=== PATIENT | female | born 1960 | race Caucasian/White ===

== ENCOUNTER 2018-02-13 15:07 | Emergency (ER) | payer MEDICARE ==
[~2018-02-13] VITALS: Ht 162.6 cm; Wt 97.0 kg
[2018-02-13 15:18] VITALS: BP 207/91; PULSE 67; RESP 16; TEMP 97.1; O2SAT 65; O2SAT 97
--- NOTE | 2018-02-13 16:12 | PD ---
HPI Chief Complaint: Skin Problem Time Seen by Provider: 15:58 Travel History International Travel<30 days: No Contact w/Intl Traveler<30days: No Traveled to known affect area: No History of Present Illness HPI This is a 57-year-old female here with multiple insect bites to her upper and lower extremities 3 days. She reports she believes these are caused by bedbugs. She is visiting from [place] and noticed small insects on her bed in her room where she is staying that appear to be bedbugs. She denies fever chills. The lesions are pruritic. No oral airway swelling. No wheezing. Symptom severity is moderate. Slightly improved with OTC Benadryl. PFSH Past Medical History Medical History: Denies Significant Hx Diminished Hearing: No Immunizations Current: Yes Tetanus Vaccination: Unknown Influenza Vaccination: No ?: Not Menopausal: Yes Past Surgical History Surgical History: No Previous Surgery Social History Alcohol Use: No Tobacco Use: No Substance Use: No Allergies-Medications (Allergen,Severity, Reaction): Coded Allergies: No Known Allergies (Unverified , 02/13/18) Reported Meds & Prescriptions Reported Meds & Active Scripts Active No Active Prescriptions or Reported Medications Review of Systems Except as stated in HPI: all other systems reviewed are Neg General / Constitutional: No: Fever Eyes: No: Visual changes HENT: No: Headaches Cardiovascular: No: Chest Pain or Discomfort Respiratory: No: Shortness of Breath Gastrointestinal: No: Abdominal Pain Genitourinary: No: Dysuria Skin: Positive Rash, Positive Itching Neurologic: No: Weakness Physical Exam Narrative GENERAL: Alert and well-appearing 49-year-old female SKIN: Warm and dry. Circular well demarcated erythematous lesions consistent with insect bites to exposed skin areas of the upper extremities and lower extremities. The areas do not appear to be infected. No fluctuance or induration. HEAD: Normocephalic. EYES: No injection or drainage. NECK: Supple. No meningismus CARDIOVASCULAR: Regular rate and rhythm RESPIRATORY: Breath sounds equal bilaterally. No accessory muscle use. GASTROINTESTINAL: Abdomen soft, non-tender, nondistended. MUSCULOSKELETAL: No cyanosis, or edema. BACK: Nontender without obvious deformity. No CVA tenderness. Data Data Last Documented VS Vital Signs Date Time Temp Pulse Resp B/P (MAP) Pulse Ox O2 Delivery O2 Flow Rate FiO2 02/13/18 15:18 97.1 67 16 207/91 (129) 97 Orders Orders Dexamethasone Inj (Decadron Inj) (02/13/18 16:15) Diphenhydramine Inj (Benadryl Inj) (02/13/18 16:15) Ed Discharge Order (02/13/18 16:12) MDM Medical Decision Making Medical Screen Exam Complete: Yes Emergency Medical Condition: Yes Differential Diagnosis Inflamed insect bites, contact dermatitis, allergic reaction Narrative Course 57-year-old female here with multiple inflamed insect bites presumed to be caused by bedbugs. She is well-appearing. She was given a shot of Decadron and Benadryl. She will be discharged home with prednisone and Benadryl. Bedbug remediation discussed Diagnosis Primary Impression: Insect bites Qualified Codes: W57.XXXA - Bitten or stung by nonvenomous insect and other nonvenomous arthropods, initial encounter Referrals: Primary Care Physician Additional Instructions: Medication as directed. Bedbug extermination as discussed Scripts Prednisone (Prednisone) 20 Mg Tab 40 MG PO DAILY, #10 TAB 0 Refills Take 40 mg (2 tablets) daily for 5 days Prov: Radha Martin 02/13/18 Disposition: 01 DISCHARGE HOME Condition: Stable Radha Martin Feb 13, 2018 16:12
[2018-02-13] MEDS ORDERED: PRED20 PO (16:13)
[2018-02-13] MEDS ORDERED: DEXAMETHASONE SOD PHOS 4 MG/ML VIAL IM ONE (16:15)
[2018-02-13] MEDS ORDERED: diphenhydrAMINE HCL 50 MG/ML VIAL IM ONE (16:15)
== END 2018-02-13 16:36 | disposition home or self-care (01) ==
LOC: PHEFT 15:07
DX: S40.862A Insect bite (nonvenomous) of left upper arm, initial encounter (principal); S40.861A Insect bite (nonvenomous) of right upper arm, initial encounter; S80.862A Insect bite (nonvenomous), left lower leg, initial encounter; S80.861A Insect bite (nonvenomous), right lower leg, initial encounter; W57.XXXA Bitten or stung by nonvenomous insect and other nonvenomous arthropods, initial encounter
CPT/HCPCS: 96372; 99283; J1100; J1200